=== PATIENT | male | born 1945 | race Caucasian/White ===

== ENCOUNTER → 2018-01-22 | Outpatient (CLI) | payer OTHER | LOC: RAD 11:18 | DX: M25.752 Osteophyte, left hip (principal) ==

== ENCOUNTER 2019-08-17 11:33 | Emergency (ER) | payer OTHER ==
[~2019-08-17] VITALS: Ht 182.9 cm; Wt 120.7 kg
[2019-08-17] MEDS ORDERED: HYDROCHLOROTH12.5 M2 PO (12:11)
[2019-08-17] MEDS ORDERED: DUTASTERIDE0.5 MG PO (12:11)
[2019-08-17] MEDS ORDERED: LOSARTAN POTASS50 MG PO (12:11)
[2019-08-17] MEDS ORDERED: AMLODIPINE BESY10 MG PO (12:11)
[2019-08-17 12:12] LABS: ABSOLUTE NEUTROPHILS 6.6 thou/uL (1.4-8.2); BASOPHILS 0.4 % (0.0-2.0); EOSINOPHILS 0.3 % (0.0-3.0); HEMATOCRIT 47.8 % (42.0-52.0); HEMOGLOBIN 16.4 gm/dL (14.0-18.0); LYMPHOCYTES 13.4 % (24.0-44.0); MCHC 34.4 g/dL (28.0-37.0); MCV 92.9 fL (80.0-100.0); MONOCYTES 8.1 % (1.0-8.0); PLATELET COUNT 236 thou/uL (150-400); POLYS 77.8 % (36.0-66.0); RBC 5.14 mil/uL (4.50-6.00); RDW 14.1 % (10.5-14.5); WBC 8.5 thou/uL (4.0-11.0)
[2019-08-17] MEDS ORDERED: QUINAPRIL HCL40 MG PO (12:12)
[2019-08-17] MEDS ORDERED: ARIMIDEX PO (12:13)
[2019-08-17] MEDS ORDERED: CLOMIPHENE CITR50 MG PO (12:13)
[2019-08-17] MEDS ORDERED: ASA81BEC PO (12:14)
[2019-08-17] MEDS ORDERED: VITAMIN B-121000 MC2 PO (12:14)
[2019-08-17] MEDS ORDERED: MAGNESIUM250 M1 PO (12:14)
[2019-08-17 12:28] LABS: CALCIUM 10.7 mg/dL (8.5-10.1); CREATININE 1.6 mg/dL (0.7-1.3); POTASSIUM 3.6 mmol/L (3.5-5.1)
[2019-08-17 12:32] LABS: TOTAL BILIRUBIN 0.6 mg/dL (<0.1-1.0); TOTAL PROTEIN 8.5 g/dL (6.4-8.2)
[2019-08-17] MEDS ORDERED: CIPRO500 M1 PO (12:34)
[2019-08-17] MEDS ORDERED: METRONIDAZOLE500 M4 PO (12:35)
[2019-08-17 15:08] VITALS: BP 129/68
== END 2019-08-17 15:10 | disposition home or self-care (01) ==
LOC: ER 11:33
PROVIDERS: Emergency Medicine
DX: K42.0 Umbilical hernia with obstruction, without gangrene (principal); R11.2 Nausea with vomiting, unspecified; Z79.899 Other long term (current) drug therapy; Z79.82 Long term (current) use of aspirin